=== PATIENT | female | born 1955 | race Caucasian/White ===

== ENCOUNTER 2016-09-10 09:02 | Inpatient (IN) | payer MEDICARE, BC ==
[~2016-09-10] VITALS: Ht 175.3 cm; Wt 74.5 kg
[2016-09-10] VITALS (10 sets, daily range): BP systolic 85–158; BP diastolic 48–102
[2016-09-10] MEDS ORDERED: OXYCODONE IR 5 MG TABLET. PO PRN (11:45)
[2016-09-10] MEDS ORDERED: CALCIUM CARBONATE 500 MG TAB.CHEW PO PRN (11:45)
[2016-09-10] MEDS ORDERED: ONDANSETRON PF 4 MG/2 ML VIAL. IV PRN (11:45)
[2016-09-10] MEDS ORDERED: PROCHLORPERAZINE 10 MG/2 ML VIAL. IV PRN (11:45)
[2016-09-10] MEDS ORDERED: KETOROLAC 15 MG/ML VIAL. IV PRN (11:45)
[2016-09-10] MEDS ORDERED: ZOLPIDEM 5 MG TABLET. PO PRN (11:45)
[2016-09-10] MEDS ORDERED: MORPHINE SULFATE 2 MG/ML DISP.SYRIN. IV PRN (11:45)
[2016-09-10] MEDS ORDERED: MAG HYDROX/ALUMINUM HYD/SIMETH 30 ML ORAL.SUSP PO PRN (11:45)
[2016-09-10] MEDS ORDERED: PROCHLORPERAZINE 25 MG SUPP.RECT. PR PRN (11:45)
--- NOTE | 2016-09-10 11:58 | PDOC1 ---
History and Physical Date of Admission Date of Admission DATE: 09/10/16 TIME: 11:46 Identification/Chief Complaint Chief Complaint diarrhea, vom,ited blood Source Source: Caregiver, Chart review, Patient History of Present Illness History of Present Illness 61 y.o female, transferred from [facility] of new atrial fib RVR needing cardziem gtt BUt pt came to [facility] for 2 days hx abd pain, diarrhea, she claims sometimes with blood? , and hematemesis - though i am unsure how reliable she can be, Hx Kaylan en y bypass 2000 [place]? (claims just recently moved) here and since then has had long hx GERD, nausea, emesis and a gamut of GI sxs Denies heavy caffeine intake, did have a cocktail last night, < 1ppday smoker BNP 1700 CXR ok LAbs ok except for october 02.5 which was repalced at [facility] HR at ER [facility] was 150s-170s BP good TAkes only 4 meds at home: unknown dosages: Lisinipril, adderall, seroquel and celexa SLightly loopy - got phenergan, haldol etc at ER [facility] Past Medical History Cardiovascular: HTN Psych: Anxiety, Depression Past Surgical History Past Surgical History: Other (Kaylan en y 2000) Family History Family History: Family History Unknown Social History Smoke: <1 pack per day ALCOHOL: occassional Drugs: None Current Problem List Problem List Problems Medical Problems: (1) Atrial fibrillation with RVR Status: Acute Problems: Current Medications Current Medications Current Medications Sodium Chloride (Iv Sodium Chloride 0.45%) 1,000 ml @ 100 mls/hr Q10H IV ; Start 09/10/16 at 11:42; Status UNV Ondansetron HCl (Zofran) 4 mg PRN Q6HRS PRN IV NAUSEA/VOMITING; Start 09/10/16 at 11:45; Status UNV Prochlorperazine Edisylate (Compazine) 10 mg PRN Q6HRS PRN IV NAUSEA/VOMITING; Start 09/10/16 at 11:45; Status UNV Prochlorperazine (Compazine) 25 mg PRN Q12HR PRN FL NAUSEA/VOMITING; Start 09/10 at 11:45; Status UNV Al Hydroxide/Mg Hydroxide (Mylanta Plus Xs) 30 ml PRN Q3HRS PRN PO HEARTBURN / GAS; Start 09/10/16 at 11:45; Status UNV Calcium Carbonate/ Glycine (Tums) 500 mg PRN Q3HRS PRN PO UPSET STOMACH; Start 09/10/16 at 11:45; Status UNV Zolpidem Tartrate (Ambien) 5 mg PRN QHS PRN PO INSOMNIA, MAY REPEAT IN 1HR; Start 09/10/16 at 11:45; Status UNV Allergies Allergies: Coded Allergies: codeine (Verified Allergy, Intermediate, 09/10/16) hydrocodone (Verified Allergy, Intermediate, 09/10/16) ROS General: No: Appetite, Chills, Fatigue, Malaise, Night Sweats, Other PSYCHOLOGICAL ROS: No: Anxiety, Behavioral Disorder, Concentration difficultie , Decreased libido, Depression, Disorientation, Hallucinations, Hostility, Irritablity, Memory difficulties, Mood Swings, Obsessive thoughts, Other, Physical abuse, Sexual abuse, Sleep disturbances, Suicidal ideation Eyes: No Blurry vision, No Decreased vision, No Double vision, No Dry eyes, No Excessive tearing, No Eye Pain, No Itchy Eyes, No Loss of vision, No Other, No Photophobia, No Scotomata, No Uses contacts, No Uses glasses HEENT: No: Epistaxis, Heacaches, Hearing change, Nasal congestion, Nasal discharge, Oral lesions, Other, Sinus pain, Sneezing, Snoring, Sore Throat, Tinnitus, Vertigo, Visual Changes, Vocal changes ALLERGY AND IMMUNOLOGY: No: Hives, Insect Bite Sensitivity, Itchy/Watery Eyes, Nasal Congestion, Other, Post Nasal Drip, Seasonal Allergies Hematological and Lymphatic: No: Bleeding Problems, Blood Clots, Blood Transfusions, Brusing, Night Sweats, Other, Pallor, Swollen Lymph Nodes ENDOCRINE: No: Breast Changes, Galactorrhea, Hair Pattern Changes, Hot Flashes , Malaise/lethargy, Mood Swings, Other, Palpitations, Polydipsia/polyuria, Skin Changes, Temperature Intolerance, Unexpected Weight Changes Breast: No New/Changing Breast Lumps, No Nipple changes, No Nipple discharge, No Other Respiratory: No: Cough, Hemoptysis, Orthopnea, Other, Pleuritic Pain, SOB with excertion, Shortness of breath, Sputum Changes, Stridor, Tachypnea, Wheezing Cardiovascular: No Chest Pain, No Edema, No Lt Headedness, No Orthopnea, No Other, No Palpitations, No Paroxysmal Noc. Dyspnea Gastrointestinal: Yes Abdominal Pain, Yes Diarrhea, Yes Nausea, Yes Vomiting Genitourinary: No , No , No , No , No , No , No , No Discharge, No Dysuria, No Flank Pain, No Frequency, No Hematuria, No Incontinence, No Other, No Pain, No Retention, No Urgency Musculoskeletal: No Gait Disturbance, No Joint Pain, No Joint Stiffness, No Joint Swelling, No Muscle Pain, No Muscular Weakness, No Other, No Pain In:, No Swelling In: Neurological: No Behavorial Changes, No Bowel/Bladder ControlChng, No Confusion , No Dizziness, No Gait Disturbance, No Headaches, No Impaired Coord/balance, No Memory Loss, No Numbness/Tingling, No Other, No Seizures, No Speech Problems , No Tremors, No Visual Changes, No Weakness Skin: No Acne, No Dry Skin, No Eczema, No Hair Changes, No Lumps, No Mole Changes, No Mottling, No Nail Changes, No Other, No Pruritus, No Rash, No Skin Lesion Changes Physical Exam General: Oriented X3, Cooperative, Other (slightly loopy - got pehergan etc at [facility] er) Lungs: Clear to auscultation Heart: no gallops, no murmurs, irregularly irregular Cardiovascular: S1 Breasts: Normal Abdomen: Normal bowel sounds, Soft, No tenderness, No hepatosplenomegaly, No masses Rectal Exam: not examined PELVIC: Nml ext genitalia Extremities: No clubbing, No cyanosis, No edema, Normal pulses, No tenderness/ swelling Skin: No rashes, No breakdown, No significant lesion Psych/Mental Status: Mental status NL, Mood NL VTE Prophylaxis Ordered VTE Prophylaxis Devices: Yes VTE Pharmacological Prophylaxi: Yes Assessment/Plan Assessment/Plan 1. New atrial fib RVR 2. NAusea, emesis, bloody diarrhea? hematemesis 3. Hx Kaylan en y 2000 4. Chronic GERD 5. Encephalopathy sec to meds given at ER 6. Possible depression, anxiety NOS - based on home meds 7. 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
[2016-09-10] MEDS: ENOXAPARIN 40 MG/0.4 ML SYRINGE. SQ SCH ×2 (12:00→12:57)
[2016-09-10] MEDS: QUEtiapine 50 MG TAB.ER.24H. PO SCH (12:57)
[2016-09-10] MEDS: CITALOPRAM 10 MG TABLET. PO SCH (12:58)
[2016-09-10] MEDS: IV 1/2 NORMAL SALINE 1,000 ML IV SCH ×2 (12:59→21:42)
[2016-09-10] MEDS: LISINOPRIL 5 MG TABLET. PO SCH (13:00)
[2016-09-10] MEDS: DILTIAZEM 125 MG in IV DEXTROSE 5% 100 ML IV PRN (14:28)
--- NOTE | 2016-09-10 18:37 | PDOC ---
Provider Note Provider Note Covering for Dr. Guerrero. She is from out of town and was visiting a friend. She developed GI symptoms and was taken to [facility]. Transferred to [facility] because of atrial fibrillation with a rapid ventricular response. She has had no cardiac symptoms of chest pain shortness of breath , palpitations or dizziness. She is not aware of being in atrial fibrillation in the past. The ventricular response is now controlled at 100 bpm. Heart sounds are normal with no murmur or gallop. Lungs are clear. She gives no history of bleeding but says she's had some GI symptoms and Kaylan-en -Y surgery in the past. Obtain echocardiogram tomorrow. Dr. Guerrero returns tomorrow. KIMBER FAITH MD Sep 10, 2016 18:37
[2016-09-11] VITALS (12 sets, daily range): BP systolic 86–130; BP diastolic 55–92
[2016-09-11] MEDS: DILTIAZEM 125 MG in IV DEXTROSE 5% 100 ML IV PRN (01:13)
[2016-09-11 04:58] LABS: PROTHROMBIN TIME PATIENT 12.8 SEC (11.7-14.0)
[2016-09-11 05:02] LABS: BASO % 1 % (0-3); EOS % 1 % (0-3); HEMATOCRIT 37.3 % (36.0-47.0); HEMOGLOBIN 12.1 g/dL (12.0-15.5); LYMPH # 2.4 x10^3/uL (1.0-4.8); LYMPH % 36 % (24-48); MEAN CORPUSCULAR HEMOGLOBIN 30 pg (25-35); MEAN CORPUSCULAR HGB CONC 33 g/dL (31-37); MEAN CORPUSCULAR VOLUME 91 fL (79-100); MONO % 7 % (0-9); NEUT % 56 % (31-73); PLATELET COUNT 198 x10^3/uL (140-400); RED BLOOD COUNT 4.11 x10^6/uL (3.50-5.40); RED CELL DISTRIBUTION WIDTH 16.2 % (11.5-14.5); WHITE BLOOD COUNT 6.6 x10^3/uL (4.0-11.0)
[2016-09-11 05:20] LABS: ALBUMIN 2.9 g/dL (3.4-5.0); ALBUMIN/GLOBULIN RATIO 1.1 (1.0-1.7); CALCIUM 7.9 mg/dL (8.5-10.1); CREATININE 1.1 mg/dL (0.6-1.0); GFR 50.7; POTASSIUM 4.2 mmol/L (3.5-5.1); TOTAL BILIRUBIN 0.5 mg/dL (0.2-1.0); TOTAL PROTEIN 5.5 g/dL (6.4-8.2)
[2016-09-11] MEDS: QUEtiapine 50 MG TAB.ER.24H. PO SCH (08:30)
[2016-09-11] MEDS: CITALOPRAM 10 MG TABLET. PO SCH (08:31)
[2016-09-11] MEDS: LISINOPRIL 5 MG TABLET. PO SCH (08:31)
[2016-09-11] MEDS: IV 1/2 NORMAL SALINE 1,000 ML IV SCH ×2 (08:33→17:42)
--- NOTE | 2016-09-11 12:25 | PDOC ---
PROGRESS NOTES Subjective Subjective Ms. Montano feeling much better since admission. Denied abdominal pain, nausea, vomiting, palpitations, CP, SOB, and swelling. Objective Objective Vital Signs Date Time Temp Pulse Resp B/P Pulse Ox O2 Delivery O2 Flow Rate FiO2 09/11/16 11:49 98.0 125 22 107/76 96 Nasal Cannula 2.0 98.0 Intake and Output 09/11/16 07:00 Intake Total 4540 ml Balance 4540 ml Intake Oral 960 ml IV Total 2580 ml Other 1000 ml # Voids 3 Physical Exam Heart: Regular rate, Normal S1, Normal S2 Extremities: No edema, Other General: Alert, Cooperative, No acute distress HEENT: EOMI Lungs: Clear to auscultation, Normal air movement Neck: No JVD Neuro: Normal speech Assessment Assessment Problems Medical Problems: (1) Atrial fibrillation with RVR Status: Acute Plan Plan of Care Echocardiogram Rate controlled, continue diltiazem drip Comment Review of Relevant I have reviewed the following items shilpa (where applicable) has been applied. Labs Laboratory Tests Test 09/10/16 12:00 09/10/16 18:20 09/11/16 04:30 Troponin I Quantitative < 0.017ng/mL (0.000-0.055) 0.018ng/mL (0.000-0.055) < 0.017ng/mL (0.000-0.055) Thyroid Stimulating Hormone (TSH) 0.785uIU/mL (0.358-3.74) White Blood Count 6.6x10^3/uL (4.0-11.0) Red Blood Count 4.11x10^6/uL (3.50-5.40) Hemoglobin 12.1g/dL (12.0-15.5) Hematocrit 37.3% (36.0-47.0) Mean Corpuscular Volume 91fL (79-100) Mean Corpuscular Hemoglobin 30pg (25-35) Mean Corpuscular Hemoglobin Concent 33g/dL (31-37) Red Cell Distribution Width 16.2% (11.5-14.5) Platelet Count 198x10^3/uL (140-400) Neutrophils (%) (Auto) 56% (31-73) Lymphocytes (%) (Auto) 36% (24-48) Monocytes (%) (Auto) 7% (0-9) Eosinophils (%) (Auto) 1% (0-3) Basophils (%) (Auto) 1% (0-3) Neutrophils # (Auto) 3.7x10^3uL (1.8-7.7) Lymphocytes # (Auto) 2.4x10^3/uL (1.0-4.8) Monocytes # (Auto) 0.4x10^3/uL (0.0-1.1) Eosinophils # (Auto) 0.1x10^3/uL (0.0-0.7) Basophils # (Auto) 0.0x10^3/uL (0.0-0.2) Prothrombin Time 12.8SEC (11.7-14.0) Prothromb Time International Ratio 1.0 (0.8-1.1) Sodium Level 141mmol/L (136-145) Potassium Level 4.2mmol/L (3.5-5.1) Chloride Level 105mmol/L (98-107) Carbon Dioxide Level 28mmol/L (21-32) Anion Gap 8 (6-14) Blood Urea Nitrogen 27mg/dL (7-20) Creatinine 1.1mg/dL (0.6-1.0) Estimated GFR (Cockcroft-Gault) 50.7 BUN/Creatinine Ratio 25 (6-20) Glucose Level 102mg/dL (70-99) Calcium Level 7.9mg/dL (8.5-10.1) Total Bilirubin 0.5mg/dL (0.2-1.0) Aspartate Amino Transf (AST/SGOT) 17U/L (15-37) Alanine Aminotransferase (ALT/SGPT) 18U/L (14-59) Alkaline Phosphatase 91U/L (46-116) Total Protein 5.5g/dL (6.4-8.2) Albumin 2.9g/dL (3.4-5.0) Albumin/Globulin Ratio 1.1 (1.0-1.7) Laboratory Tests Test 09/10/16 18:20 09/11/16 04:30 Troponin I Quantitative 0.018ng/mL (0.000-0.055) < 0.017ng/mL (0.000-0.055) White Blood Count 6.6x10^3/uL (4.0-11.0) Red Blood Count 4.11x10^6/uL (3.50-5.40) Hemoglobin 12.1g/dL (12.0-15.5) Hematocrit 37.3% (36.0-47.0) Mean Corpuscular Volume 91fL (79-100) Mean Corpuscular Hemoglobin 30pg (25-35) Mean Corpuscular Hemoglobin Concent 33g/dL (31-37) Red Cell Distribution Width 16.2% (11.5-14.5) Platelet Count 198x10^3/uL (140-400) Neutrophils (%) (Auto) 56% (31-73) Lymphocytes (%) (Auto) 36% (24-48) Monocytes (%) (Auto) 7% (0-9) Eosinophils (%) (Auto) 1% (0-3) Basophils (%) (Auto) 1% (0-3) Neutrophils # (Auto) 3.7x10^3uL (1.8-7.7) Lymphocytes # (Auto) 2.4x10^3/uL (1.0-4.8) Monocytes # (Auto) 0.4x10^3/uL (0.0-1.1) Eosinophils # (Auto) 0.1x10^3/uL (0.0-0.7) Basophils # (Auto) 0.0x10^3/uL (0.0-0.2) Prothrombin Time 12.8SEC (11.7-14.0) Prothromb Time International Ratio 1.0 (0.8-1.1) Sodium Level 141mmol/L (136-145) Potassium Level 4.2mmol/L (3.5-5.1) Chloride Level 105mmol/L (98-107) Carbon Dioxide Level 28mmol/L (21-32) Anion Gap 8 (6-14) Blood Urea Nitrogen 27mg/dL (7-20) Creatinine 1.1mg/dL (0.6-1.0) Estimated GFR (Cockcroft-Gault) 50.7 BUN/Creatinine Ratio 25 (6-20) Glucose Level 102mg/dL (70-99) Calcium Level 7.9mg/dL (8.5-10.1) Total Bilirubin 0.5mg/dL (0.2-1.0) Aspartate Amino Transf (AST/SGOT) 17U/L (15-37) Alanine Aminotransferase (ALT/SGPT) 18U/L (14-59) Alkaline Phosphatase 91U/L (46-116) Total Protein 5.5g/dL (6.4-8.2) Albumin 2.9g/dL (3.4-5.0) Albumin/Globulin Ratio 1.1 (1.0-1.7) Medications Current Medications Sodium Chloride (Iv Sodium Chloride 0.45%) 1,000 ml @ 100 mls/hr Q10H IV Last administered on 09/11/16t 08:33; Start 09/10/16 at 11:42 Ondansetron HCl (Zofran) 4 mg PRN Q6HRS PRN IV NAUSEA/VOMITING 1ST CHOICE; Start 09/10/16 at 11:45 Prochlorperazine Edisylate (Compazine) 10 mg PRN Q6HRS PRN IV NAUSEA/VOMITING 2ND CHOICE; Start 09/10/16 at 11:45 Prochlorperazine (Compazine) 25 mg PRN Q12HR PRN AL NAUSEA/VOMITING; Start 09/10 at 11:45 Al Hydroxide/Mg Hydroxide (Mylanta Plus Xs) 30 ml PRN Q3HRS PRN PO HEARTBURN / GAS; Start 09/10/16 at 11:45 Calcium Carbonate/ Glycine (Tums) 500 mg PRN Q3HRS PRN PO UPSET STOMACH; Start 09/10/16 at 11:45 Zolpidem Tartrate (Ambien) 5 mg PRN QHS PRN PO INSOMNIA, MAY REPEAT IN 1HR; Start 09/10/16 at 11:45 Oxycodone HCl (Roxicodone) 5 mg PRN Q3HRS PRN PO BREAKTHROUGH PAIN; Start at 11:45 Morphine Sulfate 2 mg PRN Q2HR PRN IV PAIN; Start 09/10/16 at 11:45 Ketorolac Tromethamine (Toradol) 15 mg PRN Q6HRS PRN IV PAIN; Start 09/10/16 at 11:45; Stop 09/15/16 at 11:44 Enoxaparin Sodium 40 mg 40 mg Q24H SQ ; Start 09/10/16 at 12:00 Diltiazem HCl/ Dextrose (Cardizem) 125 ml @ 0 mls/hr CONT PRN IV SEE I/O RECORD Last administered on 09/11/16 01:13; Start 09/10/16 at 11:45 Citalopram Hydrobromide (Celexa) 10 mg DAILY PO Last administered on 09/11/16 08:31; Start 09/10/16 at 12:00 Lisinopril (Prinivil) 5 mg DAILY PO Last administered on 09/11/16 08:31; Start 09/10/16 at 12:00 Quetiapine Fumarate (SEROquel XR) 50 mg DAILY PO Last administered on 08:30; Start 09/10/16 at 12:00 Vitals/I & O Vital Sign - Last 24 Hours 09/10/16 09/10/16 09/10/16 09/10/16 13:00 15:45 19:00 19:50 Temp 98.1 99.1 98.1 99.1 Pulse 108 102 94 92 Resp 18 18 B/P 158/102 108/67 123/82 103/69 Pulse Ox 97 97 O2 Delivery Room Air Room Air 09/10/16 09/10/16 09/10/16 09/10/16 20:00 20:00 21:00 22:00 Pulse 96 94 86 B/P 103/69 105/65 88/54 O2 Delivery Room Air 09/10/16 09/10/16 09/11/16 09/11/16 23:00 23:40 00:00 01:00 Temp 98.3 98.3 Pulse 94 94 98 80 Resp 18 B/P 85/48 86/58 86/58 92/55 Pulse Ox 95 O2 Delivery Room Air 09/11/16 09/11/16 09/11/16 09/11/16 02:00 03:00 03:10 04:00 Temp 98.1 98.1 Pulse 74 70 68 94 Resp 18 B/P 97/64 97/63 97/64 92/60 Pulse Ox 96 O2 Delivery Room Air 09/11/16 09/11/16 09/11/16 09/11/16 05:00 07:30 08:00 08:31 Temp 98.1 98.1 Pulse 76 74 74 Resp 20 B/P 113/72 118/72 118/72 Pulse Ox 95 O2 Delivery Room Air Room Air 09/11/16 11:49 Temp 98.0 98.0 Pulse 125 Resp 22 B/P 107/76 Pulse Ox 96 O2 Delivery Nasal Cannula O2 Flow Rate 2.0 Intake and Output 09/10/16 09/10/16 09/11/16 15:00 23:00 07:00 Intake Total 1740 ml 2800 ml Balance 1740 ml 2800 ml YULIYA PUGH MD Sep 11, 2016 12:25
--- NOTE | 2016-09-11 12:39 | CARD ---
APPROVED REPORT EXAM: Two-dimensional and M-mode echocardiogram with Doppler and color Doppler. Other Information Quality : Good Rhythm : Atrial Fibrillation INDICATION Atrial Fibrillation 2D DIMENSIONS RVDd2.8 (2.9-3.5cm)Left Atrium(2D)3.7 (1.6-4.0cm) IVSd1.2 (0.7-1.1cm)Aortic Root(2D)2.5 (2.0-3.7cm) LVDd4.5 (3.9-5.9cm)LVOT Diameter2.0 (1.8-2.4cm) PWd1.2 (0.7-1.1cm)LVDs2.0 (2.5-4.0cm) FS (%) 30.0 %SV81.6 ml LVEF(%)70.0 (>50%) Aortic Valve AoV Peak Michi.109.8cm/sAoV VTI16.1cm AO Peak GR.4.8mmHgLVOT VTI 16.11cm AO Mean GR.3mmHgAVA (VTI)3.10cm2 Mitral Valve MV E Hzicjdoy88.4cm/sMV DECEL LUMM376ja MV A Afvjdbct516.2cm/sE/A Ratio0.9 TDI Lateral E' P. V10.23cm/sE/Lateral E'9.6 Tricuspid Valve TR P. Twfxqpxd096kl/sRAP [id number] TR Peak Gr.35tcXcWFDL56mdGf Pulmonary Vein S1 Bszgvnmx35.6cm/sS2 Ddtcvvly66.20cm/s D2 Hcmgjbdx68.2cm/s LEFT VENTRICLE The left ventricle is normal size. There is mild concentric left ventricular hypertrophy. The left ve ntricular systolic function is normal and the ejection fraction is within normal range. The Ejection Fraction is 70%. There is normal LV segmental wall motion. Tissue Doppler imaging reveals mild left v entricular diastolic dysfunction. RIGHT VENTRICLE The right ventricle is normal size. The right ventricular systolic function is normal. ATRIA The left atrium size is normal. The right atrium size is normal. The interatrial septum is intact wit h no evidence for an atrial septal defect or patent foramen ovale as noted on 2-D or Doppler imaging. AORTIC VALVE The aortic valve is normal in structure and function. Doppler and Color Flow revealed no significant aortic regurgitation. There is no significant aortic valvular stenosis. MITRAL VALVE The mitral valve is calcified but opens well. There is no evidence of mitral valve prolapse. There is no mitral valve stenosis. Doppler and Color-flow revealed mild mitral regurgitation. TRICUSPID VALVE The tricuspid valve is normal in structure Doppler and Color Flow revealed mild tricuspid regurgitati on. The PA pressure was estimated at 25 mmHg. There is no tricuspid valve stenosis. PULMONIC VALVE The pulmonary valve is normal in structure Doppler and Color Flow revealed trace to mild pulmonic hosea vular regurgitation. There is no pulmonic valvular stenosis. GREAT VESSELS The aortic root is normal in size. The ascending aorta is moderately dilated at 3.8 cm. The IVC is no rmal in size and collapses >50% with inspiration. PERICARDIAL EFFUSION There is no evidence of significant pericardial effusion. Critical Notification Critical Value: No <Conclusion> The left ventricular systolic function is normal and the ejection fraction is within normal range. The Ejection Fraction is 70%. Tissue Doppler imaging reveals mild left ventricular diastolic dysfunction. There is mild concentric left ventricular hypertrophy. The left atrium size is normal. The right atrium size is normal. The aortic valve is normal in structure and function. Doppler and Color-flow revealed mild mitral regurgitation. The mitral valve is calcified but opens well. Doppler and Color Flow revealed mild tricuspid regurgitation. The PA pressure was estimated at 25 mmHg. Doppler and Color Flow revealed trace to mild pulmonic valvular regurgitation. The ascending aorta is moderately dilated at 3.8 cm. There is no evidence of significant pericardial effusion.
[2016-09-11] MEDS: ENOXAPARIN 40 MG/0.4 ML SYRINGE. SQ SCH (12:50)
--- NOTE | 2016-09-11 14:23 | PDOC ---
PROGRESS NOTES Chief Complaint Chief Complaint Afib w/RVR ASSESSMENT AND PLAN: 1. Atrial fib RVR: remains on cardizem gtt, with slow weaning. BP soft when HR below 100. cont weaning 2. CHF: diastolic with preserved EF, mild 3. Nausea, emesis, hematemesis: resolved 4. GERD/PUD: Hx Kaylan en y 2000. PPI bid 5. Encephalopathy sec to meds given at ER. now resolved 6. Depression/ anxiety: cont home meds 7. Hypomagnesemia: resolved with repletion. monitor 8. Prophylaxis: lovenox Vitals Vitals Vital Signs Date Time Temp Pulse Resp B/P Pulse Ox O2 Delivery O2 Flow Rate FiO2 09/11/16 11:49 98.0 125 22 107/76 96 Nasal Cannula 2.0 98.0 Physical Exam General: Alert, Cooperative, No acute distress Heart: Regular rate, Normal S1, Normal S2 Abdomen: Normal bowel sounds, Soft, No tenderness, No hepatosplenomegaly, No masses Extremities: No edema, Other Skin: No rashes, No breakdown, No significant lesion Labs LABS Laboratory Tests Test 09/10/16 18:20 09/11/16 04:30 Troponin I Quantitative 0.018ng/mL (0.000-0.055) < 0.017ng/mL (0.000-0.055) White Blood Count 6.6x10^3/uL (4.0-11.0) Red Blood Count 4.11x10^6/uL (3.50-5.40) Hemoglobin 12.1g/dL (12.0-15.5) Hematocrit 37.3% (36.0-47.0) Mean Corpuscular Volume 91fL (79-100) Mean Corpuscular Hemoglobin 30pg (25-35) Mean Corpuscular Hemoglobin Concent 33g/dL (31-37) Red Cell Distribution Width 16.2% (11.5-14.5) Platelet Count 198x10^3/uL (140-400) Neutrophils (%) (Auto) 56% (31-73) Lymphocytes (%) (Auto) 36% (24-48) Monocytes (%) (Auto) 7% (0-9) Eosinophils (%) (Auto) 1% (0-3) Basophils (%) (Auto) 1% (0-3) Neutrophils # (Auto) 3.7x10^3uL (1.8-7.7) Lymphocytes # (Auto) 2.4x10^3/uL (1.0-4.8) Monocytes # (Auto) 0.4x10^3/uL (0.0-1.1) Eosinophils # (Auto) 0.1x10^3/uL (0.0-0.7) Basophils # (Auto) 0.0x10^3/uL (0.0-0.2) Prothrombin Time 12.8SEC (11.7-14.0) Prothromb Time International Ratio 1.0 (0.8-1.1) Sodium Level 141mmol/L (136-145) Potassium Level 4.2mmol/L (3.5-5.1) Chloride Level 105mmol/L (98-107) Carbon Dioxide Level 28mmol/L (21-32) Anion Gap 8 (6-14) Blood Urea Nitrogen 27mg/dL (7-20) Creatinine 1.1mg/dL (0.6-1.0) Estimated GFR (Cockcroft-Gault) 50.7 BUN/Creatinine Ratio 25 (6-20) Glucose Level 102mg/dL (70-99) Calcium Level 7.9mg/dL (8.5-10.1) Total Bilirubin 0.5mg/dL (0.2-1.0) Aspartate Amino Transf (AST/SGOT) 17U/L (15-37) Alanine Aminotransferase (ALT/SGPT) 18U/L (14-59) Alkaline Phosphatase 91U/L (46-116) Total Protein 5.5g/dL (6.4-8.2) Albumin 2.9g/dL (3.4-5.0) Albumin/Globulin Ratio 1.1 (1.0-1.7) Review of Systems Review of Systems c/o heartburn, related to chronic GERD/PUD post Kaylan-en-Y DIANA MOLINA MD Sep 11, 2016 14:23
[2016-09-11] MEDS: PANTOPRAZOLE 40 MG TABLET.DR. PO SCH ×2 (16:30→17:42)
[2016-09-12] MEDS: DILTIAZEM 125 MG in IV DEXTROSE 5% 100 ML IV PRN (02:10)
[2016-09-12] MEDS: IV 1/2 NORMAL SALINE 1,000 ML IV SCH ×2 (02:12→13:42)
[2016-09-12 03:40] VITALS: BP 121/80
[2016-09-12 05:20] LABS: BASO % 0 % (0-3); EOS % 2 % (0-3); HEMOGLOBIN 12.8 g/dL (12.0-15.5); LYMPH # 1.9 x10^3/uL (1.0-4.8); LYMPH % 34 % (24-48); MEAN CORPUSCULAR HEMOGLOBIN 29 pg (25-35); MEAN CORPUSCULAR HGB CONC 32 g/dL (31-37); MEAN CORPUSCULAR VOLUME 91 fL (79-100); MONO % 9 % (0-9); NEUT % 54 % (31-73); PLATELET COUNT 209 x10^3/uL (140-400); RED BLOOD COUNT 4.38 x10^6/uL (3.50-5.40); WHITE BLOOD COUNT 5.4 x10^3/uL (4.0-11.0)
[2016-09-12 05:42] LABS: CALCIUM 8.3 mg/dL (8.5-10.1); CREATININE 1.1 mg/dL (0.6-1.0); GFR 50.7; POTASSIUM 3.9 mmol/L (3.5-5.1)
[2016-09-12 07:59] VITALS: BP 157/93
[2016-09-12] MEDS: PANTOPRAZOLE 40 MG TABLET.DR. PO SCH ×2 (08:37→16:27)
[2016-09-12] MEDS: QUEtiapine 50 MG TAB.ER.24H. PO SCH (08:37)
[2016-09-12] MEDS: LISINOPRIL 5 MG TABLET. PO SCH (08:38)
[2016-09-12] MEDS: CITALOPRAM 10 MG TABLET. PO SCH (08:38)
[2016-09-12 11:32] VITALS: BP 132/86
[2016-09-12] MEDS: ENOXAPARIN 40 MG/0.4 ML SYRINGE. SQ SCH (12:00)
--- NOTE | 2016-09-12 14:36 | PDOC ---
PROGRESS NOTES Subjective Subjective Patient denies CP, headache, dizziness, SOB, swelling. She could not sleep last night. Objective Objective Vital Signs Date Time Temp Pulse Resp B/P Pulse Ox O2 Delivery O2 Flow Rate FiO2 09/12/16 11:32 98.2 89 18 132/86 96 Room Air 98.2 09/11/16 11:49 2.0 Intake and Output 09/12/16 07:00 Intake Total 2862.55 ml Balance 2862.55 ml Intake Oral 1720 ml IV Total 1142.55 ml # Voids 3 Physical Exam Abdomen: Normal bowel sounds, Soft Heart: Regular rate, Other (irregularly irregular) Extremities: No clubbing, No edema, No tenderness/swelling General: Alert, Oriented X3, Cooperative, No acute distress HEENT: Atraumatic Lungs: Clear to auscultation, Normal air movement Neuro: Normal speech Psych/Mental Status: Other (depressed regarding medical problems) Skin: No rashes, No breakdown Assessment Assessment Problems Medical Problems: (1) Atrial fibrillation with RVR Status: Acute Plan Plan of Care Echocardiogram with EF of 70%, mild LV diastolic dysfunction, mild MR, mild TR, mild [place] Rate controlled. First known episode of atrial fibrillation - since unknown length of time in AF , consider therapeutic anticoagulation for 3 weeks prior to cardioversion on an outpatient basis. Change to LEONARDO Magana Thank you for the consultation! Comment Review of Relevant I have reviewed the following items shilpa (where applicable) has been applied. Labs Laboratory Tests Test 09/10/16 18:20 09/11/16 04:30 09/12/16 04:32 Troponin I Quantitative 0.018ng/mL (0.000-0.055) < 0.017ng/mL (0.000-0.055) White Blood Count 6.6x10^3/uL (4.0-11.0) 5.4x10^3/uL (4.0-11.0) Red Blood Count 4.11x10^6/uL (3.50-5.40) 4.38x10^6/uL (3.50-5.40) Hemoglobin 12.1g/dL (12.0-15.5) 12.8g/dL (12.0-15.5) Hematocrit 37.3% (36.0-47.0) 40.0% (36.0-47.0) Mean Corpuscular Volume 91fL (79-100) 91fL (79-100) Mean Corpuscular Hemoglobin 30pg (25-35) 29pg (25-35) Mean Corpuscular Hemoglobin Concent 33g/dL (31-37) 32g/dL (31-37) Red Cell Distribution Width 16.2% (11.5-14.5) 16.0% (11.5-14.5) Platelet Count 198x10^3/uL (140-400) 209x10^3/uL (140-400) Neutrophils (%) (Auto) 56% (31-73) 54% (31-73) Lymphocytes (%) (Auto) 36% (24-48) 34% (24-48) Monocytes (%) (Auto) 7% (0-9) 9% (0-9) Eosinophils (%) (Auto) 1% (0-3) 2% (0-3) Basophils (%) (Auto) 1% (0-3) 0% (0-3) Neutrophils # (Auto) 3.7x10^3uL (1.8-7.7) 2.9x10^3uL (1.8-7.7) Lymphocytes # (Auto) 2.4x10^3/uL (1.0-4.8) 1.9x10^3/uL (1.0-4.8) Monocytes # (Auto) 0.4x10^3/uL (0.0-1.1) 0.5x10^3/uL (0.0-1.1) Eosinophils # (Auto) 0.1x10^3/uL (0.0-0.7) 0.1x10^3/uL (0.0-0.7) Basophils # (Auto) 0.0x10^3/uL (0.0-0.2) 0.0x10^3/uL (0.0-0.2) Prothrombin Time 12.8SEC (11.7-14.0) Prothromb Time International Ratio 1.0 (0.8-1.1) Sodium Level 141mmol/L (136-145) 140mmol/L (136-145) Potassium Level 4.2mmol/L (3.5-5.1) 3.9mmol/L (3.5-5.1) Chloride Level 105mmol/L (98-107) 105mmol/L (98-107) Carbon Dioxide Level 28mmol/L (21-32) 27mmol/L (21-32) Anion Gap 8 (6-14) 8 (6-14) Blood Urea Nitrogen 27mg/dL (7-20) 30mg/dL (7-20) Creatinine 1.1mg/dL (0.6-1.0) 1.1mg/dL (0.6-1.0) Estimated GFR (Cockcroft-Gault) 50.7 50.7 BUN/Creatinine Ratio 25 (6-20) Glucose Level 102mg/dL (70-99) 66mg/dL (70-99) Calcium Level 7.9mg/dL (8.5-10.1) 8.3mg/dL (8.5-10.1) Total Bilirubin 0.5mg/dL (0.2-1.0) Aspartate Amino Transf (AST/SGOT) 17U/L (15-37) Alanine Aminotransferase (ALT/SGPT) 18U/L (14-59) Alkaline Phosphatase 91U/L (46-116) Total Protein 5.5g/dL (6.4-8.2) Albumin 2.9g/dL (3.4-5.0) Albumin/Globulin Ratio 1.1 (1.0-1.7) Magnesium Level 2.0mg/dL (1.8-2.4) Laboratory Tests Test 09/12/16 04:32 White Blood Count 5.4x10^3/uL (4.0-11.0) Red Blood Count 4.38x10^6/uL (3.50-5.40) Hemoglobin 12.8g/dL (12.0-15.5) Hematocrit 40.0% (36.0-47.0) Mean Corpuscular Volume 91fL (79-100) Mean Corpuscular Hemoglobin 29pg (25-35) Mean Corpuscular Hemoglobin Concent 32g/dL (31-37) Red Cell Distribution Width 16.0% (11.5-14.5) Platelet Count 209x10^3/uL (140-400) Neutrophils (%) (Auto) 54% (31-73) Lymphocytes (%) (Auto) 34% (24-48) Monocytes (%) (Auto) 9% (0-9) Eosinophils (%) (Auto) 2% (0-3) Basophils (%) (Auto) 0% (0-3) Neutrophils # (Auto) 2.9x10^3uL (1.8-7.7) Lymphocytes # (Auto) 1.9x10^3/uL (1.0-4.8) Monocytes # (Auto) 0.5x10^3/uL (0.0-1.1) Eosinophils # (Auto) 0.1x10^3/uL (0.0-0.7) Basophils # (Auto) 0.0x10^3/uL (0.0-0.2) Sodium Level 140mmol/L (136-145) Potassium Level 3.9mmol/L (3.5-5.1) Chloride Level 105mmol/L (98-107) Carbon Dioxide Level 27mmol/L (21-32) Anion Gap 8 (6-14) Blood Urea Nitrogen 30mg/dL (7-20) Creatinine 1.1mg/dL (0.6-1.0) Estimated GFR (Cockcroft-Gault) 50.7 Glucose Level 66mg/dL (70-99) Calcium Level 8.3mg/dL (8.5-10.1) Magnesium Level 2.0mg/dL (1.8-2.4) Medications Current Medications Sodium Chloride (Iv Sodium Chloride 0.45%) 1,000 ml @ 100 mls/hr Q10H IV Last administered on 09/12/16 02:12; Start 09/10/16 at 11:42 Ondansetron HCl (Zofran) 4 mg PRN Q6HRS PRN IV NAUSEA/VOMITING 1ST CHOICE Last administered on 09/12/16 12:49; Start 09/10/16 at 11:45 Prochlorperazine Edisylate (Compazine) 10 mg PRN Q6HRS PRN IV NAUSEA/VOMITING 2ND CHOICE; Start 09/10/16 at 11:45 Prochlorperazine (Compazine) 25 mg PRN Q12HR PRN [place] NAUSEA/VOMITING; Start 09/10 at 11:45 Al Hydroxide/Mg Hydroxide (Mylanta Plus Xs) 30 ml PRN Q3HRS PRN PO HEARTBURN / GAS; Start 09/10/16 at 11:45 Calcium Carbonate/ Glycine (Tums) 500 mg PRN Q3HRS PRN PO UPSET STOMACH; Start 09/10/16 at 11:45 Zolpidem Tartrate (Ambien) 5 mg PRN QHS PRN PO INSOMNIA, MAY REPEAT IN 1HR Last administered on 09/11/16 23:44; Start 09/10/16 at 11:45 Oxycodone HCl (Roxicodone) 5 mg PRN Q3HRS PRN PO BREAKTHROUGH PAIN; Start at 11:45 Morphine Sulfate 2 mg PRN Q2HR PRN IV PAIN; Start 09/10/16 at 11:45 Ketorolac Tromethamine (Toradol) 15 mg PRN Q6HRS PRN IV PAIN; Start 09/10/16 at 11:45; Stop 09/15/16 at 11:44 Enoxaparin Sodium 40 mg 40 mg Q24H SQ Last administered on 09/11/16 12:50; Start 09/10/16 at 12:00 Diltiazem HCl/ Dextrose (Cardizem) 125 ml @ 0 mls/hr CONT PRN IV SEE I/O RECORD Last administered on 09/12/16 02:10; Start 09/10/16 at 11:45 Citalopram Hydrobromide (Celexa) 10 mg DAILY PO Last administered on 09/12/16 08:38; Start 09/10/16 at 12:00 Lisinopril (Prinivil) 5 mg DAILY PO Last administered on 09/12/16 08:38; Start 09/10/16 at 12:00 Quetiapine Fumarate (SEROquel XR) 50 mg DAILY PO Last administered on 08:37; Start 09/10/16 at 12:00 Pantoprazole Sodium (Protonix) 40 mg BIDAC PO Last administered on 09/12/16 08 :37; Start 09/11/16 at 16:30 Vitals/I & O Vital Sign - Last 24 Hours 09/11/16 09/11/16 09/11/16 09/11/16 15:31 19:50 20:00 23:30 Temp 98.2 97.7 97.8 98.2 97.7 97.8 Pulse 92 103 95 Resp 16 18 18 B/P 107/65 129/92 130/76 Pulse Ox 98 99 97 O2 Delivery Room Air Room Air Room Air Room Air 09/12/16 09/12/16 09/12/16 09/12/16 03:40 07:59 08:00 08:38 Temp 97.8 98.1 97.8 98.1 Pulse 86 96 96 Resp 18 19 B/P 121/80 157/93 157/93 Pulse Ox 96 94 O2 Delivery Room Air Room Air Room Air 09/12/16 11:32 Temp 98.2 98.2 Pulse 89 Resp 18 B/P 132/86 Pulse Ox 96 O2 Delivery Room Air Intake and Output 09/11/16 09/11/16 09/12/16 15:00 23:00 07:00 Intake Total 1030.55 ml 1832 ml Balance 1030.55 ml 1832 ml YULIYA PUGH MD Sep 12, 2016 14:36
[2016-09-12 14:41] VITALS: BP 118/75
[2016-09-12] MEDS ORDERED: RIVAROXABAN 10 MG TABLET. PO SCH (17:00)
--- NOTE | 2016-09-12 17:02 | PDOC ---
PROGRESS NOTES Chief Complaint Chief Complaint Afib w/RVR ASSESSMENT AND PLAN: 1. Atrial fib RVR: remains on cardizem gtt at 5/h, with HR sl improved. awaiting Dr Guerrero' input: switch to PO? 2. OAC: start xarelto for afib/ stroke prevention 3. CHF: diastolic with preserved EF, mild 4. N/V: episodic, mainly related to excessive PO intake. d/w pt: small, frequent meals. needs frequent reminders. 5. GERD/PUD: Hx Kaylan en y 2000. PPI bid 6. Encephalopathy sec to meds given at ER. now resolved 7. Depression/ anxiety: cont home meds 8. Prophylaxis: lovenox Vitals Vitals Vital Signs Date Time Temp Pulse Resp B/P Pulse Ox O2 Delivery O2 Flow Rate FiO2 09/12/16 14:41 98.2 88 19 118/75 97 Room Air 98.2 09/11/16 11:49 2.0 Physical Exam General: Alert, Oriented X3, Cooperative, No acute distress Heart: Other (irregularly irregular) Lungs: Clear Abdomen: Normal bowel sounds, Soft, No tenderness Extremities: No clubbing, No edema Skin: No rashes Labs LABS Laboratory Tests Test 09/12/16 04:32 White Blood Count 5.4x10^3/uL (4.0-11.0) Red Blood Count 4.38x10^6/uL (3.50-5.40) Hemoglobin 12.8g/dL (12.0-15.5) Hematocrit 40.0% (36.0-47.0) Mean Corpuscular Volume 91fL (79-100) Mean Corpuscular Hemoglobin 29pg (25-35) Mean Corpuscular Hemoglobin Concent 32g/dL (31-37) Red Cell Distribution Width 16.0% (11.5-14.5) Platelet Count 209x10^3/uL (140-400) Neutrophils (%) (Auto) 54% (31-73) Lymphocytes (%) (Auto) 34% (24-48) Monocytes (%) (Auto) 9% (0-9) Eosinophils (%) (Auto) 2% (0-3) Basophils (%) (Auto) 0% (0-3) Neutrophils # (Auto) 2.9x10^3uL (1.8-7.7) Lymphocytes # (Auto) 1.9x10^3/uL (1.0-4.8) Monocytes # (Auto) 0.5x10^3/uL (0.0-1.1) Eosinophils # (Auto) 0.1x10^3/uL (0.0-0.7) Basophils # (Auto) 0.0x10^3/uL (0.0-0.2) Sodium Level 140mmol/L (136-145) Potassium Level 3.9mmol/L (3.5-5.1) Chloride Level 105mmol/L (98-107) Carbon Dioxide Level 27mmol/L (21-32) Anion Gap 8 (6-14) Blood Urea Nitrogen 30mg/dL (7-20) Creatinine 1.1mg/dL (0.6-1.0) Estimated GFR (Cockcroft-Gault) 50.7 Glucose Level 66mg/dL (70-99) Calcium Level 8.3mg/dL (8.5-10.1) Magnesium Level 2.0mg/dL (1.8-2.4) Review of Systems Review of Systems c/o N/V with PO intake, always DIANA Hung MD Sep 12, 2016 17:02
[2016-09-12] MEDS: DILTIAZEM HCL 180 MG CAP.ER.24H PO SCH (18:37)
[2016-09-12 19:35] VITALS: BP 141/85
[2016-09-12 23:25] VITALS: BP 145/86
[2016-09-13 03:45] VITALS: BP 145/82
[2016-09-13 04:18] LABS: CALCIUM 8.5 mg/dL (8.5-10.1); CREATININE 1.1 mg/dL (0.6-1.0); GFR 50.7; POTASSIUM 4.7 mmol/L (3.5-5.1)
[2016-09-13 06:37] LABS: BASO % 1 % (0-3); EOS % 3 % (0-3); HEMOGLOBIN 12.6 g/dL (12.0-15.5); LYMPH # 2.4 x10^3/uL (1.0-4.8); LYMPH % 42 % (24-48); MEAN CORPUSCULAR HEMOGLOBIN 29 pg (25-35); MEAN CORPUSCULAR HGB CONC 32 g/dL (31-37); MEAN CORPUSCULAR VOLUME 91 fL (79-100); MONO % 10 % (0-9); NEUT % 45 % (31-73); PLATELET COUNT 216 x10^3/uL (140-400); RED CELL DISTRIBUTION WIDTH 15.4 % (11.5-14.5); WHITE BLOOD COUNT 5.7 x10^3/uL (4.0-11.0)
[2016-09-13 07:00] VITALS: BP 116/89
[2016-09-13] MEDS: CITALOPRAM 10 MG TABLET. PO SCH (09:00)
[2016-09-13] MEDS ORDERED: ACETAMINOPHEN 325 MG TABLET. PO PRN (09:00)
[2016-09-13] MEDS: QUEtiapine 50 MG TAB.ER.24H. PO SCH (09:00)
[2016-09-13] MEDS: DILTIAZEM HCL 180 MG CAP.ER.24H PO SCH (09:05)
[2016-09-13] MEDS: LISINOPRIL 5 MG TABLET. PO SCH (09:05)
[2016-09-13] MEDS: PANTOPRAZOLE 40 MG TABLET.DR. PO SCH (09:06)
[2016-09-13 11:36] VITALS: BP 124/93
[2016-09-13] MEDS ORDERED: DILTIAZEM IV PUSH 25 MG/5 ML VIAL. IVP ONE (11:45)
[2016-09-13 11:59] VITALS: BP 124/93
[2016-09-13] MEDS ORDERED: DILTIAZEM HCL 120 MG CAP.ER.24H PO SCH (12:00)
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
[2016-09-13] MEDS ORDERED: RIVA10TA PO (13:39)
[2016-09-13] MEDS ORDERED: DILT300C23 PO (13:39)
[2016-09-14] MEDS ORDERED: DILTIAZEM HCL 300 MG CAP.ER.24H. PO SCH (19:00)
--- NOTE | 2016-09-16 04:18 | DS ---
DATE OF DISCHARGE: 09/13/2016 CHIEF COMPLAINT: AFib with RVR. HOSPITAL COURSE: The patient is a 61-year-old woman with known hypertension who had presented to [facility] with diarrhea and vomiting blood, but was found in atrial fibrillation with RVR. She was started on Cardizem drip and transferred to [facility]. Here, she was admitted to the ICU for monitoring. Her heart rate was difficult to control with Cardizem and this also caused significant drop in her blood pressure. However, by 09/13/2016, heart rate was fairly well controlled and she was converted to p.o. Cardizem. The initial dose of 180 proved to be insufficient and 300 mg was started. The patient was scheduled to remain in the hospital for observation for another 24 hours, but insisted on going home as she feared for her property, which she had to leave with an acquaintance of her. She was therefore discharged with a strong recommendation to follow up with her primary care physician for vital sign check and potential adjustment in her medications. She will follow up with Dr. Guerrero in 2 weeks. PHYSICAL EXAMINATION: Please refer to note from same day. DISCHARGE DATE: 09/13/2016. DISCHARGE DIAGNOSIS: New onset AFib with rapid ventricular response. DISCHARGE DISPOSITION: To home. DISCHARGE CONDITION: Improved. DISCHARGE MEDICATIONS: Please refer to MAR. DISCHARGE INSTRUCTIONS: The patient will follow up with PCP tomorrow, see Dr. Guerrero in Cardiology in 2 weeks. DIANA MOLINA MD DR: UR/nts JOB#: [id number] / [id number] Mayte Love
== END 2016-09-13 15:30 | disposition home or self-care (01) | DRG 377 ==
LOC: 2 NORTH 10:41
PROVIDERS: ADMIT Internal Medicine; ATTEND Internal Medicine
DX: K92.0 Hematemesis (principal); G93.40 Encephalopathy, unspecified; I50.30 Unspecified diastolic (congestive) heart failure; E83.42 Hypomagnesemia; F32.9 Major depressive disorder, single episode, unspecified; F41.9 Anxiety disorder, unspecified; I11.0 Hypertensive heart disease with heart failure; I48.91 Unspecified atrial fibrillation; K21.9 Gastro-esophageal reflux disease without esophagitis; K27.9 Peptic ulcer, site unspecified, unspecified as acute or chronic, without hemorrhage or perforation; F17.200 Nicotine dependence, unspecified, uncomplicated
CPT/HCPCS: 36415; 80048; 80053; 83735; 84443; 84484; 85027; 85610; 93306; J1650; J2405; J3490